=== PATIENT | female | born 1975 | race Caucasian/White ===

== ENCOUNTER 2017-02-18 13:46 | Inpatient (IN) | payer OTHER ==
[~2017-02-18] VITALS: Ht 167.6 cm; Wt 166.0 kg
--- NOTE | ~2017-02-18 | H ---
[facility] [place] [address] HISTORY AND PHYSICAL Name: JESSEMITCH Room #: 432-P ADM IN M.R.#: [id number] Admission: 02/18/17 Attend Phys: Hannah Kruger Discharge: Date of : 79 Report #: [id number] THIS REPORT FOR: //name// CC: Willian Coyle DATE OF SERVICE: 02/18/2017 CHIEF COMPLAINT: Abdominal pain. HISTORY OF PRESENT ILLNESS: The patient is a 41-year-old female who was transferred from [facility] for evaluation of abdominal pain. History is quite extensive and dates back several months, but essentially, it began when she underwent a gastric sleeve surgical procedure in November of this year. At some point postoperatively, she was readmitted to the hospital with abdominal pain and ultimately diagnosed with gastric leak and multiple intra-abdominal abscesses. She was admitted to [facility] and placed on IV antibiotics and had several percutaneous drains placed into the fluid collections. She was placed on n.p.o. status with a long Dobhoff feeding tube into the small bowel past for gastric sleeve for feedings. She has been at [facility] for the last month or more. She has finished her course of IV antibiotics and has had a followup CT, which has shown resolution of the fluid collections. It also appears that the gastric leak is healed, as there was no extravasation of contrast material. She is admitted now due to complaints of abdominal pain and fullness when she eats. She is unable to maintain her nutritional or fluid status through oral route. Plan is for GI and surgical workup and hopefully, removal of drains. PAST MEDICAL HISTORY: As above. She also has a history of obstructive sleep apnea and hypertension. PAST SURGICAL HISTORY: As above. FAMILY HISTORY: Noncontributory. SOCIAL HISTORY: No known chronic alcohol or tobacco use. ALLERGIES: None. MEDICATIONS: DuoNeb, Lovenox for DVT prophylaxis, lisinopril, oxycodone, Xanax, Pulmicort, Protonix and Reglan. REVIEW OF SYSTEMS: She denies headache, chest pain, shortness of breath, dysuria, syncope or fall. PHYSICAL EXAMINATION: VITAL SIGNS: Temperature 36.7, pulse 96, respirations 17, blood pressure 134/[address] [address] HISTORY AND PHYSICAL Name: [facility] Room #: 432-[facility] IN .R.#: [id number] Admission: 02/18/17 Attend Phys: Hannah Kruger Discharge: Date of : 79 Report #: [id number] and O2 sat 99% on room air. GENERAL: She is awake and alert, in no distress. LUNGS: Clear. HEART: Regular. ABDOMEN: Obese, soft. Normoactive bowel sounds. Multiple drains in place. EXTREMITIES: No edema. NEUROLOGIC: Motor strength 4-5/5 throughout. LABORATORY DATA: Basic lab data was unremarkable. ASSESSMENT: 1. Abdominal pain. 2. Recent gastric sleeve. 3. Recent gastric leak, now clinically healed. 4. Protein-calorie malnutrition. PLAN: The GI service has evaluated her and she will undergo EGD today to rule out any other pathology as a source of her anorexia and abdominal symptoms. Dr. Mcelroy will assess her and remove the drains. We will then need to monitor and see if she can maintain oral intake to sustain herself at home, even if at small frequent amounts. There may be a need for home IV nutritional support if she is incapable. <ELECTRONICALLY SIGNED> By: Joseph Willis MD 02/20/17 0825 [id number] Joseph Willis MD /nt
--- NOTE | ~2017-02-18 | P ---
[facility] [place] [address] PROCEDURE REPORT Name: MITCH MOLINA Room #: 432-P ADM IN M.R.#: [id number] Admission: 02/18/17 Attend Phys: Hannah Kruger Discharge: Date of : 79 Report #: [id number] THIS REPORT FOR: //name// CC: Alejandro Willis MD DATE OF SERVICE: 02/19/[address] Alejandro Coyle. INDICATION FOR PROCEDURE: This is a very pleasant 41-year-old white female who underwent a gastric sleeve surgery for weight loss purposes in November. She had several complications and this caused her to have a prolonged hospitalization. She is coming to [place] today with a chief complaint of mid epigastric abdominal pain, nausea, dry heaves and poor nutrition after her gastric sleeve surgery. We are performing EGD to try to evaluate for an explanation of these symptoms. Informed consent for this procedure was obtained prior to the administration of any medication. The risks of the procedure which include bleeding, perforation, infection, complications of sedation and the possibility I could miss something that have been explained to the patient and she has indicated her consent by signing. Propofol was slowly titrated before and during this procedure for the patient comfort. The [employer] upper videoscope was introduced through the upper esophageal sphincter and advanced under direct visualization to the third portion of the duodenum. Findings are noted on withdrawal of the scope. The visualized duodenum appeared normal throughout its entirety. Pylorus, normal mucosa. Antrum, normal mucosa. Body, normal mucosa. Cardia and fundus, normal mucosa. It should be noted that gastric sleeve surgery has been performed and the volume of the stomach is missing because of that surgery. The gastric sleeve appears intact. It is not narrowed. I saw no problems with it at all. The scope was then withdrawn into the esophagus. The Z-line appears intact, although there is some mild erythema at the level of the Z line. No biopsies can be taken because of the patient has been receiving I think a 100 mg of Lovenox twice a day. The scope was withdrawn up through the esophagus and no other abnormalities are seen. No obstruction is seen. The scope was withdrawn. The patient went to the recovery area in stable condition. She tolerated the procedure well. IMPRESSION: Aside from the gastric sleeve change, normal esophagogastroduodenoscopy to descending duodenum, there is some mild erythema in the distal esophagus only. My recommendations were for her to be on proton pump inhibitors. I think she should follow up with her surgeon. Here, she may [address] [address] PROCEDURE REPORT Name: JESSEMITCH Room #: 432-P [facility] IN M.R.#: [id number] Admission: 02/18/17 Attend Phys: Hannah Kruger Discharge: Date of : 79 Report #: [id number] want the patient to have a small bowel follow through done to make certain that there are complications or obstructions further down. <ELECTRONICALLY SIGNED> By: Latanya Vieira DO 02/20/17 0933 [id number] Latanya Vieira DO /nt
[2017-02-18 16:19] VITALS: BP 130/91
[2017-02-18] MEDS ORDERED: LISINOPRIL10 MG PO (16:23)
[2017-02-18] MEDS ORDERED: PROTONIX40 M1 IV (16:26)
[2017-02-18] MEDS ORDERED: REGLAN 10 MG TA10 MG PO (16:27)
[2017-02-18] MEDS ORDERED: LIDODERM 5%1 PATC1 TOP (16:28)
[2017-02-18] MEDS ORDERED: ENOXAPARIN100 MG/11 SUBQ (16:28)
[2017-02-18] MEDS ORDERED: PULMICORT0.5 MG/22 INH (16:31)
[2017-02-18] MEDS ORDERED: CLINIMIX 5%-12000 ML IV (16:36)
[2017-02-18] MEDS ORDERED: ALPRAZOLAM 0.50.5 M1 PO (16:39)
[2017-02-18] MEDS ORDERED: OXYCODONE HCL15 MG PO (16:40)
[2017-02-18] MEDS ORDERED: LOPERAMIDE 2 MG2 M1 PO (16:41)
[2017-02-18] MEDS ORDERED: DUONEB 2.5-0.5 M3 ML INH (16:42)
[2017-02-18 18:02] LABS: HEMATOCRIT 35.9 % (37.0-47.0); HEMOGLOBIN 12.2 gm/dL (12.0-15.0); MCH 32.5 pg (26.0-34.0); MCHC 33.9 g/dL (28.0-37.0); PLATELET COUNT 324 thou/uL (150-400); RBC 3.74 mil/uL (4.20-5.00); RDW 14.4 % (10.5-14.5); WBC 4.9 thou/uL (4.0-11.0)
[2017-02-18 18:04] LABS: MANUAL DIFF YES
[2017-02-18 18:15] LABS: ALBUMIN 2.9 g/dL (3.4-5.0); CALCIUM 9.3 mg/dL (8.5-10.1); CREATININE 0.7 mg/dL (0.6-1.3); POTASSIUM 3.9 mmol/L (3.5-5.1); TOTAL BILIRUBIN 0.5 mg/dL (<0.1-1.0)
[2017-02-18 18:19] LABS: ABSOLUTE NEUTROPHILS 2.7 thou/uL (1.4-8.2); ANISOCYTOSIS 1+; POLYCHROMASIA OCCASIONAL; TOTAL CELL COUNT 100
[2017-02-18 20:00] VITALS: BP 117/74
[2017-02-19 04:00] VITALS: BP 125/89
[2017-02-19 08:01] VITALS: BP 134/88
[2017-02-19 18:09] VITALS: BP 132/84
[2017-02-19 20:00] VITALS: BP 126/76
[2017-02-20 04:08] VITALS: BP 121/81
[2017-02-20 15:01] LABS: HEMATOCRIT 36.6 % (37.0-47.0); HEMOGLOBIN 12.6 gm/dL (12.0-15.0); MCH 32.8 pg (26.0-34.0); MCHC 34.3 g/dL (28.0-37.0); MCV 95.8 fL (80.0-100.0); RBC 3.82 mil/uL (4.20-5.00); RDW 13.9 % (10.5-14.5); WBC 5.3 thou/uL (4.0-11.0)
[2017-02-20 15:21] LABS: CALCIUM 9.1 mg/dL (8.5-10.1); CREATININE 0.8 mg/dL (0.6-1.3); POTASSIUM 4.4 mmol/L (3.5-5.1); TOTAL BILIRUBIN 0.5 mg/dL (<0.1-1.0)
[2017-02-20 15:59] VITALS: BP 120/84
[2017-02-20 20:00] VITALS: BP 109/78
[2017-02-21 04:00] VITALS: BP 124/89
[2017-02-21 07:33] VITALS: BP 137/96
[2017-02-21 16:35] VITALS: BP 130/88
[2017-02-21 21:30] VITALS: BP 123/87
[2017-02-22 05:30] VITALS: BP 125/88
[2017-02-22 08:00] VITALS: BP 145/84
[2017-02-22 12:00] VITALS: BP 112/77
[2017-02-22 16:00] VITALS: BP 127/87
[2017-02-22 20:00] VITALS: BP 132/92
[2017-02-23 04:41] VITALS: BP 129/85
[2017-02-23 07:40] VITALS: BP 126/78
[2017-02-23 15:15] VITALS: BP 121/84
[2017-02-24 06:15] VITALS: BP 126/83
[2017-02-24 06:35] LABS: HEMOGLOBIN 12.5 gm/dL (12.0-15.0); MCH 32.3 pg (26.0-34.0); MCHC 33.8 g/dL (28.0-37.0); MCV 95.7 fL (80.0-100.0); RBC 3.87 mil/uL (4.20-5.00); RDW 13.5 % (10.5-14.5); WBC 3.5 thou/uL (4.0-11.0)
[2017-02-24 07:45] VITALS: BP 136/83
[2017-02-24] MEDS ORDERED: CARVEDILOL6.25 MG PO (09:13)
[2017-02-24] MEDS ORDERED: CLINIMIX E IV (09:15)
[2017-02-24 15:37] VITALS: BP 137/105
== END 2017-02-24 16:24 | disposition short-term general hospital (02) | DRG 947 ==
LOC: LD 13:46 → 4E 14:34
PROVIDERS: Internal Medicine; Internal Medicine Geriatric Medicine; Nurse Practitioner Adult Health
DX: G89.18 Other acute postprocedural pain (principal); E43 Unspecified severe protein-calorie malnutrition; Z68.43 Body mass index [BMI] 50.0-59.9, adult; R10.9 Unspecified abdominal pain; E78.5 Hyperlipidemia, unspecified; J45.909 Unspecified asthma, uncomplicated; E66.01 Morbid (severe) obesity due to excess calories; R19.7 Diarrhea, unspecified; F32.9 Major depressive disorder, single episode, unspecified; G47.33 Obstructive sleep apnea (adult) (pediatric); I10 Essential (primary) hypertension; Z98.84 Bariatric surgery status; Z79.899 Other long term (current) drug therapy; Z87.891 Personal history of nicotine dependence
CPT/HCPCS: 10084; 62110; 70005